=== PATIENT | female | born 1975 | race Two or more races ===

== ENCOUNTER 2017-07-22 11:05 | Inpatient (IN) | payer OTHER ==
[~2017-07-22] VITALS: Ht 157.5 cm; Wt 84.6 kg
[2017-07-22 11:21] VITALS: Ht 157.5 cm; Wt 84.6 kg
[2017-07-22 12:08] LABS: BASOPHIL % 0.2 % (0-2); PLATELET COUNT 237 x10^3mcL (130-400); RED CELL DISTRIBUTION WIDTH 13.2 % (11.5-14.5)
[2017-07-22 12:25] LABS: CALCIUM 8.3 mg/dL (8.5-10.1); CARBON DIOXIDE 31.5 mmol/L (21-32); CHLORIDE SERUM 102 mmol/L (98-107); CREATININE SERUM 0.9 mg/dL (0.6-1.0); GFR1 > 60 mL/min; GLUCOSE SERUM 97 mg/dL (74-106); POTASSIUM SERUM 3.2 mmol/L (3.5-5.1); SODIUM SERUM 137 mmol/L (136-145)
[2017-07-22 12:29] LABS: ALKALINE PHOSPHATASE 57 U/L (46-116); ALT/SGPT 17 U/L (14-59); AMYLASE 54 U/L (25-115); AST/SGOT 11 U/L (15-37); BILIRUBIN TOTAL 0.4 mg/dL (0.20-1.00); LIPASE 83 IU/L (73-393); TOTAL PROTEIN, SERUM 6.9 g/dL (6.4-8.2)
[2017-07-22 12:44] LABS: ALBUMIN 3.2 g/dL (3.4-5.0)
[2017-07-22 13:09] LABS: microscopic required? YES; urine erythrocyte TRACE (NEGATIVE)
[2017-07-22 14:04] VITALS: BP 103/47
[2017-07-22 16:15] VITALS: BP 108/52
[2017-07-22 18:27] VITALS: BP 108/52
[2017-07-22 20:30] VITALS: BP 100/50
[2017-07-23 04:36] VITALS: BP 108/59
[2017-07-23 06:24] LABS: PLATELET COUNT 186 x10^3mcL (130-400); RED CELL DISTRIBUTION WIDTH 13.1 % (11.5-14.5)
[2017-07-23 06:39] LABS: CALCIUM 7.9 mg/dL (8.5-10.1); CARBON DIOXIDE 25.7 mmol/L (21-32); CHLORIDE SERUM 103 mmol/L (98-107); CREATININE SERUM 0.9 mg/dL (0.6-1.0); GFR1 > 60 mL/min; GLUCOSE SERUM 116 mg/dL (74-106); MAGNESIUM 1.7 mg/dL (1.8-2.4); POTASSIUM SERUM 3.5 mmol/L (3.5-5.1); SODIUM SERUM 136 mmol/L (136-145)
[2017-07-23 08:55] VITALS: BP 105/47
[2017-07-23 12:38] LABS: ATYPICAL LYMPH 2 %; BAND NEUTROPHIL 2 % (0-10); BASOPHIL 0 % (0-2); SEGMENTED NEUTROPHILS 89 % (37-75)
[2017-07-23 12:41] LABS: PLATELET MORPHOLOGY PLATELETS NORMAL; rbc morphology (normal/abnorm) ABNORMAL (NORMAL)
[2017-07-23 18:06] VITALS: BP 112/63
[2017-07-23 22:09] VITALS: BP 116/64
[2017-07-24 06:31] VITALS: BP 114/56
[2017-07-24 06:42] LABS: CALCIUM 8.2 mg/dL (8.5-10.1); CARBON DIOXIDE 27.3 mmol/L (21-32); CHLORIDE SERUM 107 mmol/L (98-107); CREATININE SERUM 0.9 mg/dL (0.6-1.0); GFR1 > 60 mL/min; GLUCOSE SERUM 93 mg/dL (74-106); POTASSIUM SERUM 3.5 mmol/L (3.5-5.1); SODIUM SERUM 142 mmol/L (136-145)
[2017-07-24 07:31] LABS: BASOPHIL % 0.4 % (0-2); PLATELET COUNT 210 x10^3mcL (130-400); RED CELL DISTRIBUTION WIDTH 13.2 % (11.5-14.5)
[2017-07-24 10:00] VITALS: BP 118/70
[2017-07-24 10:56] VITALS: BP 118/70
== END 2017-07-24 12:52 | disposition home or self-care (01) | DRG 225 ==
LOC: ED 11:05 → DU 13:14 → MU 13:14
PROVIDERS: Emergency Medicine; Family Medicine; Internal Medicine Pulmonary Disease; Surgery
PROC: 0DTJ4ZZ Resection of Appendix, Percutaneous Endoscopic Approach (ICD-10-PCS; principal; 2017-07-22 17:30)
DX: K35.80 Unspecified acute appendicitis (principal); R65.10 Systemic inflammatory response syndrome (SIRS) of non-infectious origin without acute organ dysfunction
CPT/HCPCS: 83880; J0694; J0696; J1170; J1650; J1885; J2270; J3010; J3475; J3490; J7030; J7040; J7042